=== PATIENT | male | born 1965 | race African-American/Black ===

== ENCOUNTER → 2019-09-02 | Outpatient (CLI) | payer OTHER ==
[~2019-09-02] MED LIST: AMLO10TA8 PO; ASPI-630 PO; ATOR40TA59 PO; DILT240C66 PO; FURO20TA3 PO; HYDR12.575 PO; METO50TA6 PO
== END | disposition home or self-care (01) ==
LOC: LAB 12:23
PROVIDERS: ATTEND Internal Medicine Gastroenterology
DX: Z01.818 Encounter for other preprocedural examination (principal); Z11.59 Encounter for screening for other viral diseases; Z80.0 Family history of malignant neoplasm of digestive organs
CPT/HCPCS: U0003-CS

== ENCOUNTER → 2019-09-06 | Day surgery (SDC) | payer OTHER ==
[~2019-09-06] MED LIST changes: +IV RINGERS,LACTATED 1000ML 1,000 ML IV SCH; +LIDOCAINE 2% PF 5 ML VIAL. ONE; +PROPOFOL 10 MG/ML (20ML) VIAL. IV ONE
--- NOTE | 2019-09-06 09:35 | CONS ---
DATE OF CONSULTATION: 09/06/2019 REFERRING PHYSICIAN: Juan Carrillo MD HISTORY OF PRESENT ILLNESS: A 53-year-old -[place]ish male with past medical history significant for hypertension, hyperlipidemia, is seen for colonoscopy. Bowel habits are regular without diarrhea or constipation. There has been no melena or hematochezia. FAMILY HISTORY: Significant for colon cancer with his father and colon polyps in his brother. Weight and appetite are stable. He is otherwise without additional complaints. PAST MEDICAL HISTORY: Significant for hypertension and hyperlipidemia. ALLERGIES: JOHN INHIBITORS. MEDICATIONS: Include amlodipine, aspirin, atorvastatin, diltiazem, furosemide, hydrochlorothiazide, metoprolol. PAST SURGICAL HISTORY: He is status post Achilles tendon repair. FAMILY AND SOCIAL HISTORY: Stable. FAMILY HISTORY: Significant for colon cancer with his father. SOCIAL HISTORY: He is a nonsmoker, social drinker. REVIEW OF SYSTEMS: HEENT: There is no decrease in visual acuity issues. CARDIAC: There is history of hypertension. ENDOCRINE: History of hyperlipidemia. NEUROLOGIC: No stroke, migraine, neuropathy. PSYCHIATRIC: No mood swings, depression, insomnia. HEMATOLOGIC: No bleeding, bruising, coagulopathy. RENAL: No dysuria, frequency, hematuria. MUSCULOSKELETAL: History of osteoarthrosis. DERMATOLOGIC: No skin rashes or pruritus. GASTROINTESTINAL: See history of present illness. PHYSICAL EXAMINATION: GENERAL: Reveals a well-nourished, well-developed -Swedish male who is alert, cooperative, in no acute distress. VITAL SIGNS: Temperature 97.7, pulse 80, respirations 20. LUNGS: Clear. CARDIOVASCULAR: Reveals an S1, S2 without S3, S4 or appreciable murmur. ABDOMEN: With a soft abdomen, normal bowel sounds, without appreciable hepatosplenomegaly. EXTREMITIES: Reveals no cyanosis, clubbing or edema. IMPRESSION: Colorectal screening with family history of colon cancer is recommended. Risks and benefits of procedure including risks of hemorrhage and perforation were discussed. The patient is willing to proceed at this time. ANAIS GRIFFITH MD DR: CELIO/yvonne JOB#: [id number] / [id number]
[2019-09-06 10:15] VITALS: BP 145/78
--- NOTE | 2019-09-09 18:06 | PATHOLOGY ---
[facility] Accession Number: [id number] . 01 Material submitted: . colon - SIGMOID POLYP BIOPSY. Modifiers: sigmoid . 01 Clinical history: . CRCS . 02 Diagnosis: Colon biopsies, sigmoid polyps: - Hyperplastic polyps. . ([facility]:mm; 09/09/2019) [facility] 09/09/2019 1133 Local . 02 Comment: There are no adenomatous changes or evidence of malignancy. . ([facility]:mm; 09/09/2019) . 02 Electronically signed: . Cruzito Norwood MD, Pathologist NPI- [id number] . 01 Gross description: . The specimen is received in formalin, labeled "Tila, Jona, sigmoid polyp BX" and consists of 3 fragments of pink-maradiaga tissue measuring 0.3 x 0.2 cm each which are entirely submitted in A1. ([facility]; 09/06/2019) SYU/SYU 09/09/2019 1129 Local . 02 Pathologist provided ICD-10: K63.5 . 02 CPT . 251761 Specimen Comment: A courtesy copy of this report has been sent to [phone] Specimen Comment: [id number] Specimen Comment: Report sent to / DR PEARSON Performed at: 01 [facility] [address], [place] [id number] MD Nigel Mercer MD Phone: [phone] Performed at: 02 [facility] [place] [address] [place], [place] [id number] MD Cruzito Norwood MD Phone: [phone]
== END ==
LOC: SURG 07:31 → EDUNIT# 10:00
PROVIDERS: ATTEND Internal Medicine Gastroenterology
DX: Z12.11 Encounter for screening for malignant neoplasm of colon (principal); K63.5 Polyp of colon; K57.30 Diverticulosis of large intestine without perforation or abscess without bleeding; K64.0 First degree hemorrhoids; I10 Essential (primary) hypertension; E78.00 Pure hypercholesterolemia, unspecified; E66.01 Morbid (severe) obesity due to excess calories; Z68.42 Body mass index [BMI] 45.0-49.9, adult; Z80.0 Family history of malignant neoplasm of digestive organs; Z72.0 Tobacco use
CPT/HCPCS: 45380; 88305; J2704; J3490

== ENCOUNTER → 2020-10-27 | Outpatient (CLI) | payer OTHER ==
[2019-09-06 10:15] VITALS: BP 145/78
[~2020-10-27] MED LIST changes: +AMLO-187 PO; -AMLO10TA8 PO; -IV RINGERS,LACTATED 1000ML 1,000 ML IV SCH; -LIDOCAINE 2% PF 5 ML VIAL. ONE; -PROPOFOL 10 MG/ML (20ML) VIAL. IV ONE
--- NOTE | 2020-10-27 10:49 | KCIC ---
EXAM: LEFT KNEE, 3 VIEWS. HISTORY: Left knee pain and swelling. COMPARISON: None. FINDINGS: No fractures are identified. There is moderate medial compartmental joint space narrowing. There are small osteophytes along all 3 compartments. Alignment is normal. There is no joint effusion. Proximal tibiofibular osteoarthritis is moderate. There is some heterotopic ossification within the proximal interosseous membrane. Atherosclerotic calcifications are noted. IMPRESSION: 1. Moderate medial compartmental osteoarthritis. Electronically signed by: Chente Quarles MD (10/27/2020 10:47 AM) [id number]
== END ==
LOC: KCIC 09:29
PROVIDERS: ATTEND Family Medicine
DX: M17.12 Unilateral primary osteoarthritis, left knee (principal); M25.762 Osteophyte, left knee; I70.90 Unspecified atherosclerosis; M25.862 Other specified joint disorders, left knee
CPT/HCPCS: 73562

== ENCOUNTER → 2020-12-02 | Outpatient (CLI) | payer OTHER ==
[2019-09-06 10:15] VITALS: BP 145/78
--- NOTE | 2020-12-02 17:03 | KCIC ---
STUDY: MRI of the left knee without contrast INDICATION: Meniscal tear. Medial knee pain. Swelling. No reported injury. COMPARISON: 10/27/2020 TECHNIQUE: Multiplanar MR imaging of the left knee performed without the use of intravenous or intra- articular contrast. FINDINGS: Menisci: No discrete tear of the lateral meniscus. Somewhat complex, multidirectional tear of the med ial meniscus primarily involving the body segment but with involvement of the posterior horn as well which is diminutive in size. No large displaced meniscal fragment. Cruciate ligaments: Intact. Collateral ligaments: Reactive edema around the MCL complex without ligamentous disruption. The later al collateral ligaments are intact as are the retinacula. Tendons: Mild distal quadriceps tendinosis. No tendon tear. Cartilage: Patellofemoral: Predominantly partial-thickness chondrosis involving the trochlea more so than the pa tella. Lateral compartment: Superficial chondrosis at a few locations to include both the weightbearing and nonweightbearing aspects. Medial compartment: Prominent areas of high-grade and full-thickness chondral loss involving both the medial femoral condyle and medial tibial plateau. Bones: Medial more so than patellofemoral compartment osteophytes. Degenerative subchondral edema/cys tic change at the medial compartment. No acute fracture. Quadriceps insertion and patellar enthesophy jonel. Chronic osseous proliferation at the proximal tibiofibular joint. Miscellaneous: Small knee joint effusion. Loose body measuring 6 mm located dorsal to the posterior horn of the lateral meniscus. Scattered subcutaneous edema. IMPRESSION: 1. Complex/multidirectional tearing of the medial meniscus primarily involving the body segment but with involvement of the posterior horn as well. No discrete tear of the lateral meniscus. The cruciat e and collateral ligaments are intact. 2. Mild distal quadriceps tendinosis. 3. Degenerative changes with tricompartmental chondrosis with by far greatest involvement of the med ial compartment where there are prominent high-grade and full-thickness defects. Osteophytes are larg est at the medial compartment. 4. Small knee joint effusion. Loose body measuring 6 mm located dorsal to the lateral meniscus poste rior horn. Electronically signed by: MAREK YANG MD (12/02/2020 5:00 PM) [id number]
== END ==
LOC: KCIC MRI 15:05
PROVIDERS: ATTEND Orthopaedic Surgery
DX: S83.232A Complex tear of medial meniscus, current injury, left knee, initial encounter (principal); M25.762 Osteophyte, left knee; M25.462 Effusion, left knee; M23.42 Loose body in knee, left knee; X58.XXXA Exposure to other specified factors, initial encounter; Y93.89 Activity, other specified; Y92.89 Other specified places as the place of occurrence of the external cause; Y99.8 Other external cause status
CPT/HCPCS: 73721